=== PATIENT | male | born 1940 | race Caucasian/White ===

== ENCOUNTER → 2016-10-15 | Outpatient (CLI) | payer MEDICARE, OTHER ==
[~2016-10-15] MED LIST: /WARF25TA; BABY81CH; LIPI20TA; MELOPOW; PAXI20TA; PERC5TAB8; PRIL20CA; RISP1TAB; THERGRAN; VALS80CA; ZEBE5TAB; indapamide; xalatan
--- NOTE | 2016-10-15 14:59 | REP ---
Clinical: Chest pain . Comparison: 11/29/2015 . Technique: PA and lateral. Findings: The mediastinum and cardiac silhouette are normal. The lung fuchs demonstrate chronic basilar changes without acute consolidation, effusion, or pneumothorax. The skeletal structures are intact and normal. Impression: 1. No acute cardiopulmonary process. Signed by Alex Tello MD 10/15/2016 02:50 P
== END ==
LOC: M WUC 14:18
PROVIDERS: ATTEND Family Medicine
DX: J15.9 Unspecified bacterial pneumonia (principal)

== ENCOUNTER → 2017-02-06 | Outpatient (REF) | payer MEDICARE, OTHER ==
[2017-02-06 13:07] LABS: MEAN CORPUSCULAR HEMOGLOBIN 33.4 pg (27.0-33.0); MEAN CORPUSCULAR HGB CONC 34.7 g/dl (32.0-36.5); MEAN CORPUSCULAR VOLUME 96.1 fl (80.0-96.0); RED CELL DISTRIBUTION WIDTH 12.5 % (11.5-14.5); WHITE BLOOD COUNT 5.3 K/mm3 (4.0-10.0)
[2017-02-06 13:40] LABS: ALBUMIN 3.6 GM/DL (3.2-5.2); ALBUMIN/GLOBULIN RATIO 1.13 (1.00-1.93); ALKALINE PHOSPHATASE 49 U/L (45-117); ALT/SGPT 19 U/L (12-78); ANION GAP 7 MEQ/L (8-16); AST/SGOT 15 U/L (15-37); BILIRUBIN,TOTAL 0.8 MG/DL (0.2-1.0); BLOOD UREA NITROGEN 13 MG/DL (7-18); CALCIUM LEVEL 9.2 MG/DL (8.8-10.2); CARBON DIOXIDE LEVEL 30 MEQ/L (21-32); CHLORIDE LEVEL 100 MEQ/L (98-107); CHOLESTEROL LEVEL 151 MG/DL (<200); CREATININE FOR GFR 1.16 MG/DL (0.70-1.30); GLOMERULAR FILTRATION RATE > 60.0 (>42); GLUCOSE, FASTING 108 MG/DL (83-110); SODIUM LEVEL 137 MEQ/L (136-145); TOTAL PROTEIN 6.8 GM/DL (6.4-8.2); TRIGLYCERIDES LEVEL 170 MG/DL (<150)
== END ==
LOC: M SFHCPLAZ 08:17
PROVIDERS: ATTEND Family Medicine
DX: I25.10 Atherosclerotic heart disease of native coronary artery without angina pectoris (principal); D51.9 Vitamin B12 deficiency anemia, unspecified; E78.2 Mixed hyperlipidemia

== ENCOUNTER → 2017-03-26 | Outpatient (CLI) | payer MEDICARE, BC, OTHER ==
[~2017-03-26] MED LIST changes: +ASPI1TAB PO; +ATOR1TAB21 PO; +BISO5TAB5 PO; +COUM1TAB17 PO; +COUM2.5T17 PO; +INDA125TA PO; +LOSA50TA20 PO; +MULT1TAB18 PO; +OMEP40CA2 PO; +PAXI20TA29 PO; +RANI1TAB6 PO; +RISP0.5T21 PO; +RISP1TAB42 PO; +TRAM50TA2 PO; +VALS1TAB46 PO; +VITA100066 PO; +ZANTTAB9 PO
[2017-03-26 11:44] LABS: MEAN CORPUSCULAR HEMOGLOBIN 32.7 pg (27.0-33.0); MEAN CORPUSCULAR HGB CONC 34.1 g/dl (32.0-36.5); MEAN CORPUSCULAR VOLUME 95.8 fl (80.0-96.0); WHITE BLOOD COUNT 6.1 K/mm3 (4.0-10.0)
--- NOTE | 2017-03-26 11:47 | REP ---
Chest two views HISTORY: Elevated cholesterol Comparison: 10/15/2016 The lungs are clear. The heart is normal in size. The pulmonary vasculature is normal in appearance. Degenerative change is present in the thoracic spine. IMPRESSION: No acute disease. Signed by Mike Whatley MD 03/26/2017 11:38 A
[2017-03-26 11:48] LABS: INR 1.07
[2017-03-26 12:15] LABS: ALBUMIN 3.8 GM/DL (3.2-5.2); ALBUMIN/GLOBULIN RATIO 1.23 (1.00-1.93); ALKALINE PHOSPHATASE 51 U/L (45-117); ALT/SGPT 19 U/L (12-78); ANION GAP 8 MEQ/L (8-16); AST/SGOT 14 U/L (15-37); BILIRUBIN,TOTAL 0.6 MG/DL (0.2-1.0); BLOOD UREA NITROGEN 13 MG/DL (7-18); CALCIUM LEVEL 9.1 MG/DL (8.8-10.2); CARBON DIOXIDE LEVEL 30 MEQ/L (21-32); CHLORIDE LEVEL 101 MEQ/L (98-107); CREATININE FOR GFR 1.05 MG/DL (0.70-1.30); GLOMERULAR FILTRATION RATE > 60.0 (>42); GLUCOSE, FASTING 88 MG/DL (83-110); SODIUM LEVEL 139 MEQ/L (136-145); TOTAL PROTEIN 6.9 GM/DL (6.4-8.2)
--- NOTE | 2017-03-26 18:28 | ECGEPIP ---
Stationary ECG Study [facility] Test Date: 2017-03-26 Pat Name: ANTIONE KERR Department: Room: - Gender: M Component Lab Tech: [facility] : [id number] Requested By: Jerome Montoya Order Number: [id number] Reading MD: Sonu Gomez Measurements Intervals [place] Rate: 59 P: 15 CO: 172 QRS: -12 QRSD: 116 T: 12 QT: 425 QTc: 422 Interpretive Statements Sinus bradycardia LA conduction disturbance? Left ventricular hypertrophy by Fran criteria Marginal ST/T-wave abnormalities. No prior tracing for comparison. Clinical correlation advised Electronically Signed On 03-26-2017 18:28:08 EDT by Sonu Gomez
== END ==
LOC: M ADMPAT 09:24
PROVIDERS: ATTEND Orthopaedic Surgery
DX: M17.12 Unilateral primary osteoarthritis, left knee (principal); Z79.01 Long term (current) use of anticoagulants

== ENCOUNTER 2017-04-06 08:03 | Inpatient (IN) | payer MEDICARE, BC, OTHER ==
[2017-03-26 11:15] VITALS: BP 130/88
--- NOTE | 2017-04-02 11:47 | HPE ---
DATE OF ADMISSION: 04/06/2017 HISTORY OF PRESENT ILLNESS: This is a pleasant male with continuing symptomatic left knee osteoarthritis. He has consented for a left total knee arthroplasty per Dr. Jan Wynne. Medical optimization per Sarbjit Hayes on 03/31/2017. I did review his note, and he was optimized. ALLERGIES: ALTACE causes cough. Side effects include CELEBREX rectal itch. DARVON nausea and vomiting. LEVITRA dizzy, agitation. PENICILLIN G SODIUM rash. SULFA rash. HIGHER DOSES OF ZEBETA severe lethargy. MEDICATION LIST: Includes: - aspirin 81 mg one tablet orally once a day delayed release - vitamin D 1000 units one tablet one orally twice daily - Xalatan 0.005% solution one drop in both eyes ophthalmic solution once a day - flaxseed oil 1000 mg capsule orally daily - Nitrostat 0.4 mg tablet sublingual one tablet under the tongue as needed chest pain - probiotic capsule one capsule orally once a day as needed - Cozaar 25 mg tablet one tablet orally twice a day - Zovirax 5% cream one application affected ear area externally five times daily - Ventolin HFA 108 (90 base mcg 4/ACT aerosol solution two puffs as needed inhalation every 4 hours - Flonase 50 mcg/dose inhaler one spray in each nostril nasally once a day as needed - bisoprolol fumarate 5 mg tablet one tablet orally once a day - Lipitor 20 mg tablet one tablet orally once a day - ranitidine HCl 150 mg tablet one tablet orally twice a day - Paxil 20 mg one tablet orally daily - Risperdal 0.5 mg one tablet orally once a day - indapamide 1.25 mg tablet one tablet orally every day - vitamin D, B-12 1000 mcg tablet one tablet orally once a day MEDICAL PROBLEM LIST: Includes: Symptomatic left knee osteoarthritis. Atherosclerotic heart disease. Mixed hyperlipidemia. Disorder of carbohydrate metabolism. Gastroesophageal reflux without esophagitis. Major depressive disorder, single episode. Anxiety disorder. Essential hypertension. Hypertensive disease. SURGICAL HISTORY Knee surgery 1966. Right total knee arthroplasty 2008. Colonoscopy for diverticulosis 2004 and 2013. Right wrist 2011. Cataract surgery. Left shoulder surgery. FAMILY HISTORY: Father and mother old age. No history of prostate, kidney, or bladder cancer. He is a former smoker, has not smoked in greater than 10 years. Denies alcohol or illicit drugs. REVIEW OF SYSTEMS: Denies chest pain, shortness breath, dyspnea on exertion, fever, chills, malaise, upper respiratory and urinary tract symptoms. PHYSICAL EXAMINATION: Height 69 inches, weight 207, temperature 97.4, blood pressure (BP) 140/75, pulse 62, respirations 16. He is a pleasant overweight white male in no acute distress. He is alert and times three. Mood and affect are appropriate. He is ambulating with favoring of his right lower extremity. No gross antalgia about the left. Abdomen: Soft, nontender times four. Chest rises symmetrically. Lungs: Clear to auscultation. Neck: Supple. Negative jugular venous distention (JVD) or bruits. Normocephalic. LABORATORIES: Were reviewed. ESR 42, RBC 3.68, hemoglobin 12.0, hematocrit 35.3, AST 4/SGOT 14. IMPRESSION: 1. Symptomatic left knee osteoarthritis. 2. The patient consented for a left total knee arthroplasty per Dr. Jan Wynne. 3. Medical optimization per Sarbjit Hayes. 4. On-call to operating room (OR), 2 grams intravenous (IV) Kefzol in OR. 5. Sequential compression devices (SCDs) and thromboembolic deterrents (TEDs) in OR. MTDD
[~2017-04-06] VITALS: Ht 177.8 cm; Wt 214.0 kg
[2017-04-06] VITALS (8 sets, daily range): BP systolic 126–161; BP diastolic 67–87; O2SAT 98–99
[~2017-04-06 08:03] MED LIST changes: -COUM1TAB17 PO; -COUM2.5T17 PO; -LOSA50TA20 PO; -TRAM50TA2 PO; -VITA100066 PO
[2017-04-06] MEDS ORDERED: LR 1,000 ML IV ONE (08:30)
[2017-04-06] MEDS ORDERED: ACETAMINOPHEN 500 MG TAB PO ONE (09:00)
[2017-04-06] MEDS ORDERED: LR 1,000 ML IV SCH ×2 (09:00→13:30)
[2017-04-06] MEDS ORDERED: VITA100066 PO (09:10)
[2017-04-06] MEDS ORDERED: COUM1TAB17 PO (09:10)
[2017-04-06] MEDS ORDERED: fentaNYL 100 MCG/2 ML INJECTION (J3010) As Ordered ONE ×2 (09:31→10:36)
[2017-04-06] MEDS ORDERED: MIDAZOLAM INJ 2 MG/2 ML VIAL (J2250) As Ordered ONE ×2 (09:31→10:36)
[2017-04-06] MEDS ORDERED: PROPOFOL 200 MG/20 ML VIAL As Ordered ONE ×2 (10:36→12:20)
[2017-04-06] MEDS ORDERED: TRANEXAMIC ACID 100 MG/ML 10ML VIAL As Ordered ONE (10:45)
[2017-04-06] MEDS ORDERED: EPINEPHrine INJ 1 MG/ML 1ML AMP As Ordered ONE (10:45)
[2017-04-06] MEDS ORDERED: CLINDAMYCIN 900 MG/50 ML PREMIX BAG As Ordered ONE (10:45)
[2017-04-06] MEDS ORDERED: MIDAZOLAM INJ 2 MG/2 ML VIAL (J2250) IV ONE (10:45)
[2017-04-06] MEDS ORDERED: fentaNYL 100 MCG/2 ML INJECTION (J3010) IV ONE (10:45)
[2017-04-06] MEDS ORDERED: BUPIVACAINE LIPOSOME/PF 1.3% 20 ML VIAL (13.3MG/ML)(EXPAREL) As Ordered ONE (11:16)
[2017-04-06] MEDS ORDERED: LIDOCAINE 2% INJ 100 MG/5 ML SDV (FOR ANES.) As Ordered ONE (11:57)
[2017-04-06] MEDS ORDERED: METOCLOPRAMIDE INJ 10MG/2ML VIAL (J2765) As Ordered ONE (11:57)
[2017-04-06] MEDS ORDERED: dexameTHASONE 4 MG/ML 1ML VIAL (J1100) As Ordered ONE (11:57)
[2017-04-06] MEDS ORDERED: ONDANSETRON 4MG/2ML VIAL (J2405) As Ordered ONE (11:57)
[2017-04-06] MEDS ORDERED: ePHEDrine SULFATE 25 MG/5 ML(5MG/ML) SYRINGE As Ordered ONE (12:06)
[2017-04-06] MEDS ORDERED: MORPHINE 1MG/ML IN 0.9% NACL 100ML IV BAG As Ordered ONE (13:26)
[2017-04-06] MEDS ORDERED: ONDANSETRON 4MG/2ML VIAL (J2405) IV PRN ×2 (13:30→13:45)
[2017-04-06] MEDS ORDERED: MORPHINE 2 MG/ML 1ML SYRINGE IV PRN (13:30)
[2017-04-06] MEDS ORDERED: fentaNYL 100 MCG/2 ML INJECTION (J3010) IV PRN (13:30)
[2017-04-06] MEDS ORDERED: diphenhydrAMINE INJ 50MG/ML VIAL (J1200) IV PRN (13:45)
[2017-04-06] MEDS ORDERED: MORPHINE 1MG/ML IN 0.9% NACL 100ML IV BAG IV PRN (13:45)
[2017-04-06] MEDS: LR 1,000 ML IV SCH (13:45)
[2017-04-06] MEDS ORDERED: EPIDURAL/PCA KEYS XX PRN (13:45)
[2017-04-06] MEDS ORDERED: FLEET ENEMA PR PRN (13:45)
[2017-04-06] MEDS ORDERED: NALBUPHINE HCL 10 MG/ML AMP (J2300) IV PRN (13:45)
[2017-04-06] MEDS ORDERED: NALOXONE INJ 0.4 MG/1 ML VIAL (J2310) IV PRN (13:45)
[2017-04-06] MEDS ORDERED: dexameTHASONE 10 MG/1 ML VIAL PRES.FREE (J1100) ONE (13:54)
[2017-04-06] MEDS ORDERED: EPINEPHrine INJ 1 MG/ML 1ML AMP ONE (13:54)
[2017-04-06] MEDS ORDERED: ROPIvacaine 0.5% 30 ML INJECTION (J2795) ONE (13:54)
--- NOTE | 2017-04-06 15:28 | RO ---
DATE OF PROCEDURE: 04/06/2017 PREPROCEDURE DIAGNOSIS: Left knee degenerative arthritis. POSTPROCEDURE DIAGNOSIS: Left knee degenerative arthritis. OPERATIVE PROCEDURE: Left total knee arthroplasty using a size 4 cruciate retaining femoral component with a size 4 tibial tray with a 12.5 mm rotating platform polyethylene insert and a 38 mm polyethylene button. All components were cemented. Prosthesis made by [employer], it was a PFC knee. SURGEON: Jerome Wynne MD TURBINATED BONE GRINDER: Mr. Shiva Blanchard ANESTHESIA: Spinal with left femoral nerve block. COMPLICATIONS: None. DESCRIPTION OF PROCEDURE: Antibiotics were given intravenously preoperatively then a successful left femoral nerve block and then a spinal anesthetic was established. A tourniquet was placed on the left upper thigh and not inflated. The left lower extremity was prepped and draped in the usual sterile fashion. The leg was then elevated, then the tourniquet was inflated after the appropriate time out had been confirmed. A longitudinal incision was then made for a medial parapatellar approach to the left knee. Bovie cautery was used to coagulate crossing vessels. The patella was everted and subperiosteal dissection around the proximal medial portion of the tibia was performed and then the knee was flexed. Anterior cruciate ligament (ACL) was debrided. The drill placed down the center of the femoral canal followed by the intramedullary adrienne and a distal femoral cutting jig set at 5 degrees valgus cut for a left knee at 10 mm resection level. The block was pinned into position. Distal femoral cut performed. AP sizing jig measured for a 4. The 3 degrees external rotation block was pinned into position followed by the four-in-one block and anterior-posterior chamfer cuts performed. We then exposed the proximal tibia and used the extramedullary jig to estimate being parallel to the mechanical axis of the tibia. We referenced off the medial tibial condyle set at 4 mm resection level. The block was then pinned into position and a secondary check with extramedullary adrienne confirmed that we appeared to be parallel to the mechanical axis. Laminar household manager was then placed laterally and we performed a completion medial meniscectomy with debridement of posterior medial osteophytes. We then placed the laminar household manager medially and performed a completion lateral meniscectomy with debridement of the posterior lateral osteophytes. Spacer blocks were then trialed and the 12.5 had the best stability. It had good balance in flexion and extension and both varus to valgus stress testing. We then exposed the proximal tibia sized for a #4 tibial tray, which was reamed and broached in position, followed by the 12.5 insert, then the femoral component trial was applied and the knee brought into extension. He had good stability to varus valgus stress test noted once again both in flexion and extension. We then everted the patella, performed a patellar osteotomy sized for 38 button. Lug holes were drilled. Patellofemoral tracking with the trial patellar component was anatomic. At this point, we drilled the lug holes for the femur, removed the trial components. Exparel was then instilled in the posterior capsule and the periosteum around both the femur and the tibia. Then, my business support assistant Mr. Shiva Blanchard began mixing the cement on the back table as I prepared the bony surfaces for cementing with a copious amount of pulsatile lavage irrigant solution. Once all the surfaces had been thoroughly dried, we cemented the tibial tray, removed excess cement, placed the polyethylene then cemented the femoral component, removed all excess cement, and then brought the knee out to extension and cemented the patellar button, held it with a clamp and removed excess cement and the clamp was held until the cement had hardened. While we were waiting, Exparel infiltration was completed through the capsular edges and then a copious amount of pulsatile lavage irrigant solution was instilled followed by Tranexamic acid. We then began closing the apex of the arthrotomy with #1 PDS suture, then closed the medial parapatellar area with #1 PDS sutures. Then, a running double arm Stratafix was used to close the capsule. The tourniquet was then released at this point and then the subdermal tissues were closed with interrupted #2-0 PDS sutures, skin was closed with eddie, covered by Adaptic dry sterile bulky dressing. Mr. Blanchard was critical to the success of the procedure by helping to manipulate the knee, helping with appropriate soft tissue retraction; helped to close the wound, helped to prepare the patient for surgery amongst many other tasks.
[2017-04-06] MEDS ORDERED: ALBUTEROL SULFATE 2.5 MG/0.5 ML INH NEB SOLN NEB PRN (16:30)
[2017-04-06] MEDS ORDERED: WARFARIN SOD 5 MG TAB PO ONE (17:00)
--- NOTE | 2017-04-06 17:15 | CR ---
DATE OF CONSULTATION: 04/06/2017 CONSULTATION REPORT FOR: Jerome Wynne MD HISTORY: The patient is admitted to complete a left total knee arthroplasty. He had previous knee done a few years ago on the right. He has had arthritis for many years, gradually worsening, pain rates 8/10. He has been seen by cardiology. He does have a history of coronary artery disease status post atherectomy in 1995. Most recent stress tests was in 2011, showed normal perfusion and an ejection fraction of 65%, thought to be low risk at that time. The patient recently has not had difficulty with chest pain, palpitations or orthopnea and affirms that he adheres to his medication regimen. PAST MEDICAL HISTORY: Remarkable for BPH, coronary artery disease as mentioned, routine followup with cottage cheese maker Dr. Gomez, gastroesophageal reflux disease, shoulder calcific tendonitis, retinal vein occlusion right eye in December 2008, colonoscopy 2004 and 2013 showing diverticulosis, tremors in his hands, hypercholesterolemia. CURRENT MEDICATIONS: According to the office record: - aspirin 81 mg daily - vitamin D 1000 units twice a day - Xalatan eye drops 0.005% solution one drop both eyes daily - flaxseed oil 1000 mg daily - Nitrostat 0.4 mg sublingual as needed for chest pain - probiotic capsule once daily as needed - Cozaar 25 mg by mouth twice a day - Zovirax 5% cream externally as needed - Ventolin HFA two puffs every 4 hours as needed - Flonase 50 mcg in the nose once daily as needed, he notes he has not been using this agent recently - bisoprolol 5 mg by mouth daily - atorvastatin 20 mg by mouth daily - ranitidine 150 mg by mouth twice a day - paroxetine 20 mg by mouth daily - Risperdal 0.5 mg by mouth twice a day - indapamide 1.25 mg every other day - vitamin B12 1000 mcg daily SOCIAL HISTORY: mold operator. 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 ALLERGIES: Include cough with ALTACE, CELEBREX perianal itching, DARVON nausea, LEVITRA dizzy and agitation, PENICILLIN G rash, SULFONAMIDE rash, lethargy with high-dose ZEBETA. REVIEW OF SYSTEMS: No fevers, chills, aches, pains. No bleeding, no bruising. No diarrhea, constipation, nausea or melena. No dizziness, fainting, or seizure disorder. No chest pain or palpitations. No cough, shortness of breath or wheezing recently. No rash or bruising. No nasal congestion or drainage. No trouble swallowing. No odynophagia. No recent change in vision and no trouble with peeing. PHYSICAL EXAMINATION: He is alert and pleasant. Minimal tremor noted. Somewhat slow to respond to questions and affect somewhat flat. Blood pressure 163/76, pulse 65, respiratory rate 18, nasal cannula 2 liters producing an oxygen saturation of 99%. HEENT: Normocephalic, atraumatic. Pupils equal, round, and reactive to light. Full extraocular movements. No oral lesions noted. No palpable neck mass. No thyroid enlargement or tracheal shift. HEART: Regular rate and rhythm, 2/6 systolic murmur heard at the base. No PMI displacement is noted. Pulses are full throughout. LUNGS: Clear. No wheezing, rales or rhonchi. Equal expansion is noted. ABDOMEN: Soft, flat, nontender, with no guarding or rebound. EXTREMITIES: No clubbing or edema. He has well-healed right total knee incision scar, left is covered in dressings postoperatively. NEUROLOGIC: He has a flat affect. A mild, faint tremor is noted. He moves all extremities spontaneously, although flexion of the left knee was not tested. LABORATORY DATA: Hemoglobin 12.0, sedimentation rate 42 before surgery. Comprehensive metabolic profile normal except for low AST at 14. Urinalysis was unremarkable. IMAGING STUDIES: Included a chest x-ray done on 03/26/2017, which showed no acute disease. ASSESSMENT: Patient status post left total knee, history of right total knee in the past, history of chronic stable coronary artery disease, hypertension, medication regimen shows a history of depression, GERD. PLAN: Will resume his usual preadmission medications with hold parameters for the Cozaar and indapamide. Flonase will not be reordered at this time because he has not been using it recently in any event. Nitroglycerin sublingual will be ordered if need arises. Flaxseed will also not be renewed. In brief, will resume bisoprolol 5 mg daily, atorvastatin 20 daily, aspirin 81 mg daily, put out albuterol nebulizers instead of using a MDI while in the hospital, latanoprost drops will be renewed, and will be started on indapamide 1.25 mg every other day along with losartan 25 by mouth twice a day. At this point the patient looks to be doing well. Anticipate uncomplicated course.
[2017-04-06] MEDS: LATANOPROST 0.005% OPHTH SOLN 2.5 ML OU SCH (21:20)
[2017-04-06] MEDS: risperiDONE 0.5 MG TAB PO SCH (21:20)
[2017-04-06] MEDS: LOSARTAN 25 MG TAB PO SCH (21:20)
[2017-04-06] MEDS: ACETAMINOPHEN TAB 650MG DOSE (2X325MG) PO PRN (22:08)
[2017-04-07] MEDS: ACETAMINOPHEN TAB 650MG DOSE (2X325MG) PO PRN ×6 (02:04→22:42)
[2017-04-07] MEDS: LR 1,000 ML IV SCH (02:15)
[2017-04-07 06:00] VITALS: BP 178/81
[2017-04-07] MEDS ORDERED: traMADol 50 MG TAB PO PRN (07:00)
[2017-04-07] MEDS ORDERED: ONDANSETRON 4 MG TAB (S0181) PO PRN (07:00)
[2017-04-07 07:19] LABS: MEAN CORPUSCULAR HEMOGLOBIN 34.1 pg (27.0-33.0); MEAN CORPUSCULAR HGB CONC 34.9 g/dl (32.0-36.5); MEAN CORPUSCULAR VOLUME 97.7 fl (80.0-96.0); RED CELL DISTRIBUTION WIDTH 12.3 % (11.5-14.5); WHITE BLOOD COUNT 11.5 K/mm3 (4.0-10.0)
[2017-04-07 07:24] LABS: ANION GAP 10 MEQ/L (8-16); BLOOD UREA NITROGEN 17 MG/DL (7-18); CALCIUM LEVEL 8.4 MG/DL (8.8-10.2); CARBON DIOXIDE LEVEL 25 MEQ/L (21-32); CHLORIDE LEVEL 102 MEQ/L (98-107); CREATININE FOR GFR 1.21 MG/DL (0.70-1.30); GLOMERULAR FILTRATION RATE > 60.0 (>42); GLUCOSE, FASTING 201 MG/DL (83-110); POTASSIUM SERUM 4.1 MEQ/L (3.5-5.1); SODIUM LEVEL 137 MEQ/L (136-145)
[2017-04-07 07:28] LABS: INR 1.5
--- NOTE | 2017-04-07 08:00 | IPNPDOC ---
Subjective Date Seen The patient was seen on 04/07/17. Subjective Chief Complaint/HPI The patient is a 76-year-old male admitted with a reason for visit of Left Knee Arthritis. General: Reports: Normal Appetite Constitutional: Denies: Chills, Malaise Skin: Denies: Rash, Itching Pulmonary: Denies: Dyspnea, Cough, Pleuritic Chest Pain Cardiovascular: Denies: Chest Pain, Palpitations, Orthopnea Gastrointestinal: Denies: Nausea, Vomiting, Abdominal Pain Genitourinary: Denies: Dysuria Hematologic: Denies: Bruising, Petecchia Psych: Reports: Mood Normal Objective Physical Examination General Exam: Positive: Alert, Cooperative Eye Exam: Positive: PERRLA, Conjunctiva & lids normal, EOMI, Negative: Sclera icteric, Ptosis Chest Exam: Positive: Clear to auscultation, Normal air movement, Negative: Rales, Rhonchi, Wheezing Heart Exam: Positive: Rate Normal, Regular Rhythm Abdomen Exam: Positive: Normal bowel sounds, Soft, Negative: Tenderness, Hepatospenomegaly Extremity Exam: Negative: Clubbing, Cyanosis, Edema Skin Exam: Positive: Nl turgor and temperature, Negative: Rash Psych Exam: Positive: Mental status NL, Oriented x 3, Negative: Anxiety Assessment /Plan Problems (1) Status post total left knee replacement Status: Acute Response to Treatment: Improving Problem Text: management per ortho. receiving usual DVT prophylaxis. was ambulating yesterday afternoon. coping well with any discomfort. (2) Hypertension Status: Chronic Response to Treatment: Stable Problem Specific Plan: Monitor Clinically Problem Text: Has not received am meds. anticipate improvement in pressure after meds given. will continue to follow. (3) Depression Status: Chronic Response to Treatment: Stable Problem Specific Plan: Monitor Clinically Plan/VTE VTE Prophylaxis Ordered?: Yes Plan Anticipated Discharge: Home, Home With Services VS, I&O, 24H, [place] Vital Signs/I&O Vital Signs Date Time Temp Pulse Resp B/P (MAP) Pulse Ox O2 Delivery O2 Flow Rate FiO2 04/07/17 06:00 98.7 88 20 178/81 (113) 97 Nasal Cannula 2.0 I&O- Last 24 Hours up to 6 AM 04/07/17 05:59 Intake Total 1165 ml Output Total 2700 ml Balance -1535 ml Laboratory Data 24H LABS Laboratory Tests 2 04/07/17 06:39: Prothrombin Time 18.5H, Prothromb Time International Ratio 1.50, Anion Gap 10, Glomerular Filtration Rate > 60.0, Blood Urea Nitrogen 17, Creatinine 1.21, Sodium Level 137, Potassium Level 4.1, Chloride Level 102, Carbon Dioxide Level 25, Calcium Level 8.4L CBC/BMP Laboratory Tests 04/07/17 06:39 Red Blood Count 3.22 L, Mean Corpuscular Volume 97.7 H, Mean Corpuscular Hemoglobin 34.1 H, Mean Corpuscular Hemoglobin Concent 34.9, Red Cell Distribution Width 12.3, Calcium Level 8.4 L Larry Payton MD Apr 07, 2017 07:59
[2017-04-07] MEDS ORDERED: INDAPAMIDE 1.25MG TABLET PO SCH (09:00)
[2017-04-07] MEDS: MOM 30ML SUSPENSION UDC PO SCH (09:00)
[2017-04-07] MEDS: MIRALAX *UNIT DOSE* 17GM PACKET PO SCH (09:00)
[2017-04-07] MEDS: ATORVASTATIN 20 MG TAB PO SCH (10:05)
[2017-04-07] MEDS: SENOKOT S TAB PO SCH ×2 (10:05→21:00)
[2017-04-07] MEDS: risperiDONE 0.5 MG TAB PO SCH ×2 (10:05→21:00)
[2017-04-07] MEDS: PARoxetine 20 MG TAB PO SCH (10:05)
[2017-04-07] MEDS: ASPIRIN 81 MG ENTERIC TAB PO SCH (10:05)
[2017-04-07] MEDS: BISOPROLOL FUMARATE 5 MG TAB PO SCH (10:06)
[2017-04-07] MEDS: LOSARTAN 25 MG TAB PO SCH ×2 (10:06→21:01)
--- NOTE | 2017-04-07 12:21 | REP ---
LEFT KNEE: AP and lateral views of the left knee are performed. There is a total knee prosthesis in good position. The structures are well aligned. Metallic skin eddie are seen anteriorly. Signed by Delonte Ackerman MD 04/07/2017 05:09 P
[2017-04-07] MEDS ORDERED: WARFARIN SOD 5 MG TAB PO ONE (17:00)
[2017-04-07] MEDS: LATANOPROST 0.005% OPHTH SOLN 2.5 ML OU SCH (21:01)
[2017-04-07 22:00] VITALS: BP 184/72
[2017-04-07 23:44] VITALS: O2SAT 99
[2017-04-08] MEDS: ACETAMINOPHEN TAB 650MG DOSE (2X325MG) PO PRN ×3 (02:28→14:14)
[2017-04-08 06:00] VITALS: BP 188/80
[2017-04-08 07:13] LABS: MEAN CORPUSCULAR HEMOGLOBIN 33.3 pg (27.0-33.0); MEAN CORPUSCULAR VOLUME 95.1 fl (80.0-96.0); RED CELL DISTRIBUTION WIDTH 11.9 % (11.5-14.5); WHITE BLOOD COUNT 10.2 K/mm3 (4.0-10.0)
[2017-04-08 07:19] LABS: ANION GAP 9 MEQ/L (8-16); BLOOD UREA NITROGEN 16 MG/DL (7-18); CALCIUM LEVEL 8.4 MG/DL (8.8-10.2); CARBON DIOXIDE LEVEL 27 MEQ/L (21-32); CHLORIDE LEVEL 99 MEQ/L (98-107); CREATININE FOR GFR 0.97 MG/DL (0.70-1.30); GLOMERULAR FILTRATION RATE > 60.0 (>42); GLUCOSE, FASTING 153 MG/DL (83-110); POTASSIUM SERUM 3.5 MEQ/L (3.5-5.1); SODIUM LEVEL 135 MEQ/L (136-145)
[2017-04-08 07:24] LABS: INR 2.78
[2017-04-08] MEDS ORDERED: TRAM50TA2 PO (08:21)
[2017-04-08] MEDS ORDERED: COUM2.5T17 PO (08:21)
[2017-04-08] MEDS: ASPIRIN 81 MG ENTERIC TAB PO SCH (10:04)
[2017-04-08] MEDS: LOSARTAN 25 MG TAB PO SCH (10:05)
[2017-04-08] MEDS: BISOPROLOL FUMARATE 5 MG TAB PO SCH (10:05)
[2017-04-08] MEDS: ATORVASTATIN 20 MG TAB PO SCH (10:05)
[2017-04-08] MEDS: SENOKOT S TAB PO SCH (10:05)
[2017-04-08] MEDS: risperiDONE 0.5 MG TAB PO SCH (10:05)
[2017-04-08] MEDS: PARoxetine 20 MG TAB PO SCH (10:05)
[2017-04-08] MEDS: MIRALAX *UNIT DOSE* 17GM PACKET PO SCH (10:06)
[2017-04-08] MEDS: MOM 30ML SUSPENSION UDC PO SCH (10:06)
[2017-04-08] MEDS ORDERED: LOSARTAN 25 MG TAB PO ONE (10:30)
[2017-04-08] MEDS ORDERED: LOSA50TA20 PO (11:19)
[2017-04-08 11:56] VITALS: BP 188/80
[2017-04-08] MEDS ORDERED: LOSARTAN 50 MG TAB PO SCH (21:00)
--- NOTE | 2017-04-12 19:43 | DSES ---
DATE OF ADMISSION: 04/06/2017 DATE OF DISCHARGE: 04/08/2017 DISCHARGE DIAGNOSIS: Left knee arthritis status post left total knee arthroplasty. HISTORY: Jonnie is a pleasant 76-year-old male with persistent left knee pain. He has elected for surgery for his continued symptoms. PROCEDURE PERFORMED: Left total knee arthroplasty. HOSPITAL COURSE: The patient was admitted on the day of surgery and underwent left total knee arthroplasty without complications. The patient was up with physical therapy per the protocol and their pain was controlled. On the day of discharge the patient was doing well, they will move their knee to prevent stiffness, they will use ARIANNA stockings and adjusted dose Coumadin for DVT prophylaxis. Also, the patient will followup in the office in 2 weeks for staple removal. They were instructed to resume their normal diet and will use oral medications for pain control.
== END 2017-04-08 14:40 | disposition home health service (06) | DRG 470 ==
LOC: M OR 08:03 → M MS5PR 14:15
PROVIDERS: ADMIT Orthopaedic Surgery; ATTEND Orthopaedic Surgery
PROC: 0SRD0J9 Replacement of Left Knee Joint with Synthetic Substitute, Cemented, Open Approach (ICD-10-PCS; principal; 2017-04-06 11:10)
DX: M17.12 Unilateral primary osteoarthritis, left knee (principal); F32.9 Major depressive disorder, single episode, unspecified; Z88.0 Allergy status to penicillin; Z88.2 Allergy status to sulfonamides; Z88.5 Allergy status to narcotic agent; Z88.8 Allergy status to other drugs, medicaments and biological substances; Z79.899 Other long term (current) drug therapy; Z79.82 Long term (current) use of aspirin; F41.9 Anxiety disorder, unspecified; K21.9 Gastro-esophageal reflux disease without esophagitis; I25.10 Atherosclerotic heart disease of native coronary artery without angina pectoris; E78.2 Mixed hyperlipidemia; Z96.651 Presence of right artificial knee joint; I10 Essential (primary) hypertension

== ENCOUNTER → 2017-04-20 | Outpatient (REF) | payer MEDICARE, BC, OTHER ==
[~2017-04-20] MED LIST changes: +COUM1TAB17 PO; +COUM2.5T17 PO; +LOSA50TA20 PO; +TRAM50TA2 PO; +VITA100066 PO
[2017-04-20 15:46] LABS: INR 4.3
== END ==
LOC: M LAB REF 13:30
PROVIDERS: ATTEND Orthopaedic Surgery
DX: Z51.81 Encounter for therapeutic drug level monitoring (principal); Z79.01 Long term (current) use of anticoagulants

== ENCOUNTER → 2017-04-21 | Outpatient (CLI) | payer MEDICARE, BC, OTHER ==
[2017-04-21 11:39] LABS: INR 3.13
== END ==
LOC: M SMT 09:49
PROVIDERS: ATTEND Physician Assistant
DX: Z51.81 Encounter for therapeutic drug level monitoring (principal); Z79.01 Long term (current) use of anticoagulants; Z96.652 Presence of left artificial knee joint

== ENCOUNTER → 2017-04-28 | Outpatient (CLI) | payer MEDICARE, BC, OTHER ==
[2017-04-28 11:10] LABS: INR 1.25
== END ==
LOC: M SMT 10:05
PROVIDERS: ATTEND Physician Assistant
DX: Z51.81 Encounter for therapeutic drug level monitoring (principal); Z79.01 Long term (current) use of anticoagulants; Z96.652 Presence of left artificial knee joint

== ENCOUNTER → 2017-04-30 | Outpatient (CLI) | payer MEDICARE, BC, OTHER ==
[2017-04-30 11:36] LABS: INR 1.56
== END ==
LOC: M SMT 10:14
PROVIDERS: ATTEND Physician Assistant
DX: Z96.652 Presence of left artificial knee joint (principal); Z79.01 Long term (current) use of anticoagulants

== ENCOUNTER → 2017-05-04 | Outpatient (CLI) | payer MEDICARE, BC, OTHER ==
[2017-05-04 13:37] LABS: INR 2.07
== END ==
LOC: M SMT 09:56
PROVIDERS: ATTEND Physician Assistant
DX: Z51.81 Encounter for therapeutic drug level monitoring (principal); Z79.01 Long term (current) use of anticoagulants; Z96.652 Presence of left artificial knee joint

== ENCOUNTER → 2018-01-29 | Outpatient (REF) | payer MEDICARE, OTHER ==
[2018-01-29 18:06] LABS: FREE T4 0.92 NG/DL (0.76-1.46); THYROID STIMULATING HORMONE 0.272 uIU/ML (0.358-3.740)
[2018-01-29 18:07] LABS: VITAMIN B12 LEVEL 801 PG/ML (247-911)
== END ==
LOC: M SFHCPLAZ 15:24
DX: R41.3 Other amnesia (principal)
CPT/HCPCS: 84443

== ENCOUNTER → 2018-02-04 | Outpatient (REF) | payer MEDICARE, OTHER ==
[2018-02-04 16:39] LABS: ANION GAP 9 MEQ/L (8-16); BLOOD UREA NITROGEN 14 MG/DL (7-18); CALCIUM LEVEL 8.7 MG/DL (8.8-10.2); CARBON DIOXIDE LEVEL 29 MEQ/L (21-32); CHLORIDE LEVEL 102 MEQ/L (98-107); CREATININE FOR GFR 1.14 MG/DL (0.70-1.30); GLOMERULAR FILTRATION RATE > 60.0 (>42); GLUCOSE, FASTING 126 MG/DL (70-100); POTASSIUM SERUM 4.2 MEQ/L (3.5-5.1); SODIUM LEVEL 140 MEQ/L (136-145)
== END ==
LOC: M SFHCPLAZ 13:57
DX: I25.10 Atherosclerotic heart disease of native coronary artery without angina pectoris (principal); I11.9 Hypertensive heart disease without heart failure; E74.9 Disorder of carbohydrate metabolism, unspecified; E78.2 Mixed hyperlipidemia
CPT/HCPCS: 80048

== ENCOUNTER → 2018-02-11 | Outpatient (CLI) | payer MEDICARE, BC, OTHER ==
[~2018-02-11] MED LIST changes: -/WARF25TA; -ASPI1TAB PO; -ATOR1TAB21 PO; -BABY81CH; -BISO5TAB5 PO; -COUM1TAB17 PO; -COUM2.5T17 PO; -INDA125TA PO; -LIPI20TA; -LOSA50TA20 PO; -MELOPOW; -MULT1TAB18 PO; -OMEP40CA2 PO; -PAXI20TA; -PAXI20TA29 PO; -PERC5TAB8; -PRIL20CA; +PROHANCE 279.3MG/ML 15ML VIAL (A9576) As Ordered; +PROHANCE 279.3MG/ML 5ML VIAL (A9576) As Ordered; -RANI1TAB6 PO; -RISP0.5T21 PO; -RISP1TAB; -RISP1TAB42 PO; -THERGRAN; -TRAM50TA2 PO; -VALS1TAB46 PO; -VALS80CA; -VITA100066 PO; -ZANTTAB9 PO; -ZEBE5TAB; -indapamide; -xalatan
== END ==
LOC: M RAD 11:01
DX: R41.3 Other amnesia (principal); H93.13 Tinnitus, bilateral; H91.93 Unspecified hearing loss, bilateral; I67.81 Acute cerebrovascular insufficiency; G31.9 Degenerative disease of nervous system, unspecified
CPT/HCPCS: A9576

== ENCOUNTER → 2018-07-30 | Outpatient (REF) | payer MEDICARE, OTHER ==
[~2018-07-30] MED LIST changes: +/WARF25TA; +ASPI1TAB PO; +ATOR1TAB21 PO; +BABY81CH; +BISO5TAB5 PO; +COUM1TAB17 PO; +COUM2.5T17 PO; +INDA125TA PO; +LIPI20TA; +LOSA50TA73 PO; +MELOPOW; +MULT1TAB18 PO; +OMEP40CA2 PO; +PAXI20TA; +PAXI20TA29 PO; +PERC5TAB8; +PRIL20CA; -PROHANCE 279.3MG/ML 15ML VIAL (A9576) As Ordered; -PROHANCE 279.3MG/ML 5ML VIAL (A9576) As Ordered; +RANI1TAB6 PO; +RISP0.5T21 PO; +RISP1TAB; +RISP1TAB42 PO; +THERGRAN; +TRAM50TA2 PO; +VALS1TAB46 PO; +VALS80CA; +VITA100066 PO; +ZANTTAB9 PO; +ZEBE5TAB; +indapamide; +xalatan
[2018-07-30 13:15] LABS: MEAN CORPUSCULAR HEMOGLOBIN 32.8 pg (27.0-33.0); MEAN CORPUSCULAR HGB CONC 34.4 g/dl (32.0-36.5); MEAN CORPUSCULAR VOLUME 95.5 fl (80.0-96.0); PLATELET COUNT, AUTOMATED 241 10^3/uL (150-450); RED BLOOD COUNT 3.35 10^6/uL (4.30-6.10); WHITE BLOOD COUNT 7.5 10^3/uL (4.0-10.0)
[2018-07-30 13:39] LABS: ALBUMIN 3.2 GM/DL (3.2-5.2); BILIRUBIN,TOTAL 0.7 MG/DL (0.2-1.0); CALCIUM LEVEL 8.9 MG/DL (8.8-10.2); CHOLESTEROL RISK RATIO 4.058 (<5); CREATININE FOR GFR 1.38 MG/DL (0.70-1.30); GLOMERULAR FILTRATION RATE 52.9 (>42); POTASSIUM SERUM 3.8 MEQ/L (3.5-5.1); TOTAL PROTEIN 6.7 GM/DL (6.4-8.2)
[2018-07-30 16:46] LABS: FOLATE 15.4 NG/ML
== END ==
LOC: M SFHCPLAZ 11:35
PROVIDERS: ATTEND Nurse Practitioner Family
DX: R53.83 Other fatigue (principal); R05 Cough; I11.9 Hypertensive heart disease without heart failure; E78.2 Mixed hyperlipidemia
CPT/HCPCS: 36415; 80053; 80061; 82607; 82746; 85027; 85046; G0463

== ENCOUNTER → 2018-08-11 | Outpatient (CLI) | payer MEDICARE, BC, OTHER ==
[2018-08-11 14:22] LABS: BLOOD UREA NITROGEN 18 MG/DL (7-18); CALCIUM LEVEL 8.5 MG/DL (8.8-10.2); CARBON DIOXIDE LEVEL 27 MEQ/L (21-32); CHLORIDE LEVEL 99 MEQ/L (98-107); CREATININE FOR GFR 1.19 MG/DL (0.70-1.30); GLOMERULAR FILTRATION RATE > 60.0 (>42); GLUCOSE, FASTING 137 MG/DL (70-100); POTASSIUM SERUM 4.1 MEQ/L (3.5-5.1); SODIUM LEVEL 135 MEQ/L (136-145)
== END ==
LOC: M SMT 11:21
PROVIDERS: ATTEND Nurse Practitioner Family
DX: I11.9 Hypertensive heart disease without heart failure (principal)

== ENCOUNTER → 2018-09-30 | Outpatient (REF) | payer MEDICARE, OTHER ==
[~2018-09-30] MED LIST changes: -LOSA50TA73 PO; +LOSA50TA88 PO
== END ==
LOC: M SFHCPLAZ 17:03
PROVIDERS: ATTEND Nurse Practitioner Family
DX: R31.9 Hematuria, unspecified (principal)
CPT/HCPCS: 81002; 87086; G0463

== ENCOUNTER → 2018-10-08 | Outpatient (CLI) | payer MEDICARE, BC, OTHER ==
--- NOTE | 2018-10-08 14:39 | REP ---
RENAL AND BLADDER ULTRASOUND: Real-time sonographic evaluation of the kidneys was performed. Kidneys are normal in size and echotexture, right kidney measuring 11.3 x 6.1 x 6.2 cm and left kidney 14.8 x 6.0 x 7.3 cm inclusive of a cyst in the upper pole. There are bilateral renal cysts identified. Once again in the upper pole of the right kidney there is a cyst with a thin rim of calcification in the wall of the cyst. This is essentially unchanged when compared to the prior study of 08/31/2015, measuring 4.2 x 4.6 x 4.1 cm. There is a cyst in the right lower pole measures 1.9 x 1.4 x 1.6 cm. There are multiple cysts in the left kidney, largest in the upper pole measures 4.1 x 3.5 x 4.1 cm and lower pole 4.7 x 3.7 x 4.4 cm. Urinary bladder is minimally distended and not optimally evaluated. IMPRESSION: Bilateral renal cysts as above. No hydronephrosis. There is a cyst in the upper pole of the right kidney has a thin rim of calcification in its wall and appears essentially unchanged compared to the prior CT of 08/31/2015. Electronically Signed by Delonte Ackerman MD 10/08/2018 04:13 P
== END ==
LOC: M RAD 11:36
PROVIDERS: ATTEND Nurse Practitioner Family
DX: N28.1 Cyst of kidney, acquired (principal); Z87.442 Personal history of urinary calculi

== ENCOUNTER → 2018-10-20 | Outpatient (CLI) | payer MEDICARE, BC, OTHER ==
--- NOTE | 2018-10-20 18:37 | REP ---
BILATERAL KNEES: Four views of bilateral knees performed. There is no acute fracture or dislocation. There are bilateral knee prostheses in place, in good position, with no abnormal lucency adjacent to any of the prosthetic components. IMPRESSION: Bilateral total knee prosthesis with no acute abnormalities. Electronically Signed by Delonte Ackerman MD 10/20/2018 07:47 P
--- NOTE | 2018-10-20 18:38 | REP ---
BILATERAL FEMUR: AP and lateral views of the bilateral femurs are performed. There is no acute fracture or dislocation bilaterally. There are bilateral total knee prostheses. There are mild scattered vascular calcifications in the medial soft tissues. There is mild joint space narrowing, subchondral sclerosis and spurring at both hip joints. There is mild tendinous calcification along the greater and lesser trochanters bilaterally. There is bilateral superior patellar spurring. IMPRESSION: Mild degenerative changes of the hips. Superior patellar spurring bilaterally. Bilateral knee prostheses. Electronically Signed by Delonte Ackerman MD 10/20/2018 07:48 P
== END ==
LOC: M WUC 16:36
PROVIDERS: ATTEND Physician Assistant
DX: M25.761 Osteophyte, right knee (principal); M25.762 Osteophyte, left knee; M84.80 Other disorders of continuity of bone, unspecified site; Z96.653 Presence of artificial knee joint, bilateral; M79.604 Pain in right leg

== ENCOUNTER → 2019-01-14 | Outpatient (CLI) | payer MEDICARE, BC, OTHER ==
[~2019-01-14] MED LIST changes: -/WARF25TA; -ASPI1TAB PO; +ASPI81TA26 PO; +COUM1TAB18; -VALS1TAB46 PO; +VALS1TAB66 PO
--- NOTE | 2019-01-14 09:45 | REP ---
RIGHT UPPER QUADRANT ULTRASOUND: Real-time sonographic evaluation of the right upper quadrant performed. No gallstones are seen in the gallbladder. There is a 3 mm polyp along the inner wall in the region of the neck of the gallbladder. There are tiny echogenic foci in the wall of the gallbladder compatible with adenomyomatosis. There is no intrahepatic or extrahepatic biliary dilatation, common bile duct measuring 5 mm. The liver demonstrates no mass. Pancreas is not seen due to overlying bowel gas. Right kidney is normal in size with a length of 11.1 cm. No hydronephrosis is seen. There is a cyst in the upper pole of the right kidney 5.1 x 4.3 x 3.6 cm with a calcific rim. Simple cyst in the right lower pole measures 2.3 cm in diameter. IMPRESSION: No gallstones. 3 mm polyp within the gallbladder. There are findings compatible with adenomyomatosis of the gallbladder. No biliary dilatation. Cyst upper pole right kidney with a calcific rim with a maximum diameter of 5.1 cm. This was seen on the prior CT of 08/31/2015 and appears to have slightly increased in size. Simple cyst lower pole right kidney 2.3 cm. Electronically Signed by Delonte Ackerman MD 01/18/2019 09:54 A
== END ==
LOC: M RAD 07:10
PROVIDERS: ATTEND Nurse Practitioner Family
DX: K82.4 Cholesterolosis of gallbladder (principal); N28.1 Cyst of kidney, acquired

== ENCOUNTER → 2019-03-01 | Outpatient (CLI) | payer MEDICARE, BC, OTHER ==
[2019-03-01 18:50] LABS: ALBUMIN 3.4 GM/DL (3.2-5.2); BLOOD UREA NITROGEN 12 MG/DL (7-18); CALCIUM LEVEL 8.4 MG/DL (8.8-10.2); CARBON DIOXIDE LEVEL 28 MEQ/L (21-32); CHLORIDE LEVEL 103 MEQ/L (98-107); CREATININE FOR GFR 1.16 MG/DL (0.70-1.30); GLOMERULAR FILTRATION RATE > 60.0 (>42); GLUCOSE, FASTING 106 MG/DL (70-100); PHOSPHORUS LEVEL 3.4 MG/DL (2.5-4.9); SODIUM LEVEL 137 MEQ/L (136-145)
== END ==
LOC: M SMT 13:12
PROVIDERS: ATTEND Internal Medicine Cardiovascular Disease
DX: I11.9 Hypertensive heart disease without heart failure (principal)

== ENCOUNTER → 2019-06-20 | Outpatient (CLI) | payer MEDICARE, BC, OTHER ==
[~2019-06-20] MED LIST changes: -BISO5TAB5 PO; +BISO5TAB9 PO; -OMEP40CA2 PO; +OMEP40CA97 PO; +RANI-356 PO; -RANI1TAB6 PO
[2019-06-20 18:25] LABS: ALBUMIN 3.5 GM/DL (3.2-5.2); BILIRUBIN,TOTAL 0.7 MG/DL (0.2-1.0); CALCIUM LEVEL 9.1 MG/DL (8.8-10.2); CREATININE FOR GFR 1.35 MG/DL (0.70-1.30); GLOMERULAR FILTRATION RATE 54.1 (>35); POTASSIUM SERUM 3.9 MEQ/L (3.5-5.1); TOTAL PROTEIN 6.9 GM/DL (6.4-8.2)
== END ==
LOC: M SMT 13:29
PROVIDERS: ATTEND Internal Medicine Cardiovascular Disease
DX: I25.10 Atherosclerotic heart disease of native coronary artery without angina pectoris (principal); I11.9 Hypertensive heart disease without heart failure

== ENCOUNTER → 2019-07-14 | Outpatient (REF) | payer MEDICARE, OTHER ==
[2019-07-14 17:16] LABS: HEMATOCRIT 35.7 % (42.0-52.0); HEMOGLOBIN 11.9 g/dl (13.5-17.5); MEAN CORPUSCULAR HEMOGLOBIN 32.1 pg (27.0-33.0); MEAN CORPUSCULAR HGB CONC 33.3 g/dl (32.0-36.5); MEAN CORPUSCULAR VOLUME 96.2 fl (80.0-96.0); PLATELET COUNT, AUTOMATED 236 10^3/uL (150-450); RED BLOOD COUNT 3.71 10^6/uL (4.30-6.10); WHITE BLOOD COUNT 5.8 10^3/uL (4.0-10.0)
[2019-07-14 17:46] LABS: ALBUMIN 3.6 GM/DL (3.2-5.2); BILIRUBIN,TOTAL 0.8 MG/DL (0.2-1.0); CALCIUM LEVEL 9.2 MG/DL (8.8-10.2); CHOLESTEROL RISK RATIO 4.38 (<5); CREATININE FOR GFR 1.74 MG/DL (0.70-1.30); FREE T4 0.99 NG/DL (0.76-1.46); GLOMERULAR FILTRATION RATE 40.4 (>35); POTASSIUM SERUM 4.8 MEQ/L (3.5-5.1); PROSTATIC SPECIFIC AG MONITOR 0.78 NG/ML (< 4.00); THYROID STIMULATING HORMONE 0.486 uIU/ML (0.358-3.740); TOTAL PROTEIN 7.1 GM/DL (6.4-8.2)
[2019-07-14 17:48] LABS: FOLATE 12.5 NG/ML
== END ==
LOC: M SFHCADAM 14:23
PROVIDERS: ATTEND Family Medicine
DX: N28.1 Cyst of kidney, acquired (principal); I25.10 Atherosclerotic heart disease of native coronary artery without angina pectoris; I11.9 Hypertensive heart disease without heart failure; E78.2 Mixed hyperlipidemia; R97.20 Elevated prostate specific antigen [PSA]; F01.50 Vascular dementia, unspecified severity, without behavioral disturbance, psychotic disturbance, mood disturbance, and anxiety

== ENCOUNTER → 2019-08-01 | Outpatient (CLI) | payer MEDICARE, OTHER ==
[~2019-08-01] MED LIST changes: -RANI-356 PO; +RANI-397 PO
[2019-08-01 14:23] LABS: ALBUMIN 3.6 GM/DL (3.2-5.2); CALCIUM LEVEL 8.7 MG/DL (8.8-10.2); CREATININE FOR GFR 1.55 MG/DL (0.70-1.30); GLOMERULAR FILTRATION RATE 46.2 (>35); PHOSPHORUS LEVEL 3.1 MG/DL (2.5-4.9); POTASSIUM SERUM 4.7 MEQ/L (3.5-5.1)
== END ==
LOC: M PLALAB 11:57
PROVIDERS: ATTEND Internal Medicine Cardiovascular Disease
DX: I11.9 Hypertensive heart disease without heart failure (principal)

== ENCOUNTER → 2019-08-11 | Outpatient (CLI) | payer MEDICARE, BC, OTHER ==
--- NOTE | 2019-08-11 14:15 | REP ---
RENAL ULTRASOUND: Real-time sonographic evaluation of the kidneys performed. Right kidney measures 11.5 x 6.8 x 5.4 cm and left kidney 14.0 x 6.8 x 7.2 cm. There is no hydronephrosis bilaterally. There are multiple bilateral renal cysts. Once again the upper pole of the right kidney, there is a cystic structure with a calcified wall, measuring 4.0 x 3.7 x 3.9 cm. This is unchanged compared to prior ultrasound of 09/01/2007. A simple cyst is seen in the lower pole of the right kidney 1.2 x 1.4 x 2.0 cm. In the upper pole of the left kidney several cysts are seen. There is a cyst with internal echoes laterally in the upper pole, measuring 4.1 x 3.5 x 4.3 cm. This was not suspicious on the prior MRI 09/05/2015. It has increased in size by about 1 cm. Simple cyst in the mid left kidney measures 2.7 x 2.2 x 2.6 cm. A cyst with low level echoes in the lower pole of the left kidney measures 4.9 x 4.8 x 5.4 cm. Again, this was not suspicious on the MRI of 09/05/2015 and has increased in size by about 1 cm. IMPRESSION: Multiple bilateral renal cysts as above. There is a cyst in the upper pole of the left kidney as well as in the lower pole of the left kidney, both of which contain low level echoes and apparent debris. These were not suspicious on the prior MRI of 09/05/2015 and both have increased by approximately 1 cm in diameter since that prior exam. These are probably benign. There may be more completely evaluated with dedicated CT or MRI of the kidneys, with and without contrast. Electronically Signed by Delonte Ackerman MD 08/11/2019 05:14 P
== END ==
LOC: M RAD 13:08
PROVIDERS: ATTEND Family Medicine
DX: N28.1 Cyst of kidney, acquired (principal); K76.89 Other specified diseases of liver

== ENCOUNTER → 2019-09-23 | Outpatient (REF) | payer MEDICARE, OTHER ==
[~2019-09-23] MED LIST changes: +BISO5TAB14 PO; -BISO5TAB9 PO
[2019-09-23 19:38] LABS: PERCENT SATURATION 28.6 % (19.7-50.0)
== END ==
LOC: M LAB REF 18:12
PROVIDERS: ATTEND Internal Medicine Nephrology
DX: D50.9 Iron deficiency anemia, unspecified (principal)

== ENCOUNTER → 2020-06-07 | Outpatient (REF) | payer MEDICARE, OTHER ==
[~2020-06-07] MED LIST changes: +LATA0.0015; +NITR0.4S14 SL; +OMEP-218; +RANI15TA PO; +SPIR-10; +VITA-113 SL
[2020-06-07 16:54] LABS: HEMATOCRIT 33.3 % (42.0-52.0); HEMOGLOBIN 10.7 g/dl (13.5-17.5); MEAN CORPUSCULAR HEMOGLOBIN 31.2 pg (27.0-33.0); MEAN CORPUSCULAR HGB CONC 32.1 g/dl (32.0-36.5); MEAN CORPUSCULAR VOLUME 97.1 fl (80.0-96.0); PLATELET COUNT, AUTOMATED 240 10^3/uL (150-450); RED BLOOD COUNT 3.43 10^6/uL (4.30-6.10); WHITE BLOOD COUNT 6.1 10^3/uL (4.0-10.0)
[2020-06-07 17:20] LABS: ALBUMIN 3.6 GM/DL (3.2-5.2); ALT/SGPT 14 U/L (12-78); BILIRUBIN,TOTAL 0.5 MG/DL (0.2-1.0); BLOOD UREA NITROGEN 14 MG/DL (7-18); CALCIUM LEVEL 9.2 MG/DL (8.8-10.2); CARBON DIOXIDE LEVEL 31 MEQ/L (21-32); CHLORIDE LEVEL 103 MEQ/L (98-107); CHOLESTEROL LEVEL 119 MG/DL (<200); CHOLESTEROL RISK RATIO 2.704 (<5); CREATININE FOR GFR 1.11 MG/DL (0.70-1.30); FREE T4 1.03 NG/DL (0.76-1.46); GLOMERULAR FILTRATION RATE > 60.0 (>35); GLUCOSE, FASTING 80 MG/DL (70-100); HDL CHOLESTEROL 44 MG/DL (>40); LDL CHOLESTEROL 46 MG/DL (<100); NON-HDL-C 75 MG/DL; POTASSIUM SERUM 4.8 MEQ/L (3.5-5.1); PROSTATIC SPECIFIC AG MONITOR 0.62 NG/ML (< 4.00); SODIUM LEVEL 136 MEQ/L (136-145); THYROID STIMULATING HORMONE 0.254 uIU/ML (0.358-3.740); TOTAL PROTEIN 6.8 GM/DL (6.4-8.2); TRIGLYCERIDES LEVEL 145 MG/DL (<150)
== END ==
LOC: M SFHCADAM 15:25
PROVIDERS: ATTEND Family Medicine
DX: I25.10 Atherosclerotic heart disease of native coronary artery without angina pectoris (principal); I11.9 Hypertensive heart disease without heart failure; E78.2 Mixed hyperlipidemia; R97.20 Elevated prostate specific antigen [PSA]; R63.4 Abnormal weight loss
CPT/HCPCS: 80053; 80061; 84153; 84439; 84443; 85027; G0463

== ENCOUNTER → 2020-06-23 | Outpatient (CLI) | payer MEDICARE, OTHER | LOC: M LABSMTC 11:20 | PROVIDERS: ATTEND Anesthesiology | DX: Z01.818 Encounter for other preprocedural examination (principal); Z20.828 Contact with and (suspected) exposure to other viral communicable diseases | CPT/HCPCS: C9803; U0003 ==

== ENCOUNTER → 2020-06-28 | Day surgery (SDC) | payer MEDICARE, BC, OTHER ==
[~2020-06-28] VITALS: Ht 177.8 cm; Wt 84.4 kg
[~2020-06-28] MED LIST changes: +LIDOCAINE 2% 100MG/5ML SDV (FOR ANES.) As Ordered ONE; +NS 1,000 ML IV ONE; +fentaNYL 100 MCG/2 ML INJECTION (J3010) As Ordered ONE; +propofoL 200 MG/20 ML VIAL As Ordered ONE
--- NOTE | 2020-06-28 12:54 | ROOR ---
Patient Name: Jonnie Gandhi Procedure Date: 06/28/2020 12:43 PM Date of : 1940 Age: 80 Room: [facility] Gender: Male Note Status: Finalized Procedure: Upper GI endoscopy Indications: Weight loss Providers: Prudencio Garcia Jr, MD Referring MD: Donell Patino MD Requesting Provider: Medicines: Propofol per Anesthesia Complications: No immediate complications. Procedure: Pre-Anesthesia Assessment: - Prior to the procedure, a History and Physical was performed, and patient medications and allergies were reviewed. The patient is competent. The risks and benefits of the procedure and the sedation options and risks were discussed with the patient. All questions were answered and informed consent was obtained. Patient identification and proposed procedure were verified by the physician and the nurse in the pre-procedure area and in the procedure room. Mental Status Examination: alert and oriented. Airway Examination: normal oropharyngeal airway and neck mobility. Respiratory Examination: clear to auscultation. CV Examination: normal. ASA Grade Assessment: II - A patient with mild systemic disease. After reviewing the risks and benefits, the patient was deemed in satisfactory condition to undergo the procedure. The anesthesia plan was to use moderate sedation / analgesia (conscious sedation). Immediately prior to administration of medications, the patient was re-assessed for adequacy to receive sedatives. The heart rate, respiratory rate, oxygen saturations, blood pressure, adequacy of pulmonary ventilation, and response to care were monitored throughout the procedure. The physical status of the patient was re-assessed after the procedure. The Endoscope was introduced through the mouth, and advanced to the second part of duodenum. The upper GI endoscopy was accomplished without difficulty. The patient tolerated the procedure well. Findings: The upper third of the esophagus, middle third of the esophagus, lower third of the esophagus and gastroesophageal junction were normal. The cardia, gastric fundus, gastric body, gastric antrum, prepyloric region of the stomach and pylorus were normal. The duodenal bulb, first portion of the duodenum and second portion of the duodenum were normal. Impression: - Normal upper third of esophagus, middle third of esophagus, lower third of esophagus and gastroesophageal junction. - Normal cardia, gastric fundus, gastric body, antrum, prepyloric region of the stomach and pylorus. - Normal duodenal bulb, first portion of the duodenum and second portion of the duodenum. - No specimens collected. Recommendation: - Discharge patient to home (ambulatory). - Return to my office in 2 weeks. Prudencio Garcia MD Prudencio Garcia Jr, MD 06/28/2020 12:54:07 PM Electronically signed by Prudencio Garcia Jr, MD Number of Addenda: 0 Note Initiated On: 06/28/2020 12:43 PM Estimated Blood Loss: Estimated blood loss: none.
--- NOTE | 2020-06-28 13:05 | ROOR ---
Patient Name: Jonnie Gandhi Procedure Date: 06/28/2020 12:43 PM Date of : 1940 Age: 80 Room: [facility] Gender: Male Note Status: Finalized Procedure: Colonoscopy Indications: Change in bowel habits, Weight loss Providers: Prudencio Garcia Jr, MD Referring MD: Donell Patino MD Requesting Provider: Medicines: Propofol per Anesthesia Complications: No immediate complications. Procedure: Pre-Anesthesia Assessment: - Prior to the procedure, a History and Physical was performed, and patient medications and allergies were reviewed. The patient is competent. The risks and benefits of the procedure and the sedation options and risks were discussed with the patient. All questions were answered and informed consent was obtained. Patient identification and proposed procedure were verified by the physician and the nurse in the pre-procedure area and in the procedure room. Mental Status Examination: alert and oriented. Airway Examination: normal oropharyngeal airway and neck mobility. Respiratory Examination: clear to auscultation. CV Examination: normal. ASA Grade Assessment: II - A patient with mild systemic disease. After reviewing the risks and benefits, the patient was deemed in satisfactory condition to undergo the procedure. The anesthesia plan was to use moderate sedation / analgesia (conscious sedation). Immediately prior to administration of medications, the patient was re-assessed for adequacy to receive sedatives. The heart rate, respiratory rate, oxygen saturations, blood pressure, adequacy of pulmonary ventilation, and response to care were monitored throughout the procedure. The physical status of the patient was re-assessed after the procedure. The Colonoscope was introduced through the anus and advanced to the cecum, identified by appendiceal orifice and ileocecal valve. The colonoscopy was performed without difficulty. The patient tolerated the procedure well. The quality of the bowel preparation was adequate. Findings: The rectum, recto-sigmoid colon, descending colon, transverse colon, cecum, appendiceal orifice and ileocecal valve appeared normal. A few small and large-mouthed diverticula were found in the sigmoid colon and ascending colon. Impression: - The rectum, recto-sigmoid colon, descending colon, transverse colon, cecum, appendiceal orifice and ileocecal valve are normal. - Diverticulosis in the sigmoid colon and in the ascending colon. - No specimens collected. Recommendation: - Discharge patient to home (ambulatory). - Return to my office in 2 weeks. Prudencio Garcia MD Prudencio Garcia Jr, MD 06/28/2020 1:05:09 PM Electronically signed by Prudencio Garcia Jr, MD Number of Addenda: 0 Note Initiated On: 06/28/2020 12:43 PM Estimated Blood Loss: Estimated blood loss: none.
[2020-06-28 13:20] VITALS: BP 180/85
== END | disposition home or self-care (01) ==
LOC: M OPP 11:24
PROVIDERS: ATTEND Surgery
DX: K57.30 Diverticulosis of large intestine without perforation or abscess without bleeding (principal); R63.4 Abnormal weight loss; R19.4 Change in bowel habit; Z79.899 Other long term (current) drug therapy; Z79.82 Long term (current) use of aspirin; Z88.0 Allergy status to penicillin; Z88.2 Allergy status to sulfonamides; Z88.5 Allergy status to narcotic agent
CPT/HCPCS: 43235; 45378; J3010

== ENCOUNTER → 2021-03-16 | Outpatient (CLI) | payer MEDICARE, BC, OTHER ==
[~2021-03-16] MED LIST changes: -LIDOCAINE 2% 100MG/5ML SDV (FOR ANES.) As Ordered ONE; -NS 1,000 ML IV ONE; +OMEP40CA4 PO; -OMEP40CA97 PO; -fentaNYL 100 MCG/2 ML INJECTION (J3010) As Ordered ONE; -propofoL 200 MG/20 ML VIAL As Ordered ONE
== END ==
LOC: M RAD 15:28
PROVIDERS: ATTEND Physician Assistant
DX: M48.061 Spinal stenosis, lumbar region without neurogenic claudication (principal)

== ENCOUNTER → 2021-05-28 | Outpatient (CLI) | payer MEDICARE, BC, OTHER ==
[2021-05-28 15:40] LABS: HEMOGLOBIN 10.5 g/dl (13.5-17.5); MEAN CORPUSCULAR HEMOGLOBIN 32.2 pg (27.0-33.0); MEAN CORPUSCULAR HGB CONC 32.8 g/dl (32.0-36.5); MEAN CORPUSCULAR VOLUME 98.2 fl (80.0-96.0); PLATELET COUNT, AUTOMATED 207 10^3/uL (150-450); RED BLOOD COUNT 3.26 10^6/uL (4.30-6.10); WHITE BLOOD COUNT 5.3 10^3/uL (4.0-10.0)
[2021-05-28 16:31] LABS: HEMOGLOBIN A1c 5.8 %
[2021-05-28 18:23] LABS: ALBUMIN 3.4 GM/DL (3.2-5.2); BILIRUBIN,TOTAL 0.9 MG/DL (0.2-1.0); CALCIUM LEVEL 9.3 MG/DL (8.8-10.2); CHOLESTEROL RISK RATIO 3.022 (<5); CREATININE FOR GFR 1.31 MG/DL (0.70-1.30); FREE T4 0.92 NG/DL (0.76-1.46); GLOMERULAR FILTRATION RATE 55.8 (>35); POTASSIUM SERUM 5.1 MEQ/L (3.5-5.1); THYROID STIMULATING HORMONE 0.564 uIU/ML (0.358-3.740); TOTAL PROTEIN 6.7 GM/DL (6.4-8.2)
== END ==
LOC: M PLALAB 13:35
PROVIDERS: ATTEND Family Medicine
DX: I25.10 Atherosclerotic heart disease of native coronary artery without angina pectoris (principal); D64.9 Anemia, unspecified; I11.0 Hypertensive heart disease with heart failure; E78.2 Mixed hyperlipidemia; F32.9 Major depressive disorder, single episode, unspecified; E74.9 Disorder of carbohydrate metabolism, unspecified; Z79.899 Other long term (current) drug therapy

== ENCOUNTER → 2021-07-23 | Outpatient (CLI) | payer MEDICARE, BC, OTHER ==
[~2021-07-23] MED LIST changes: +D31000TA2 PO; +GNP1000C11 PO; +ISOVUE-370 76% 100ML VIAL As Ordered ONE; +LATA0.0015 OU; +LOSA50TA28 PO; -LOSA50TA88 PO; +OMEP-173 PO; -OMEP-218; -SPIR-10; +SPIR-10 PO
== END ==
LOC: M RAD 13:33
PROVIDERS: ATTEND Internal Medicine Nephrology
DX: R31.9 Hematuria, unspecified (principal); N28.1 Cyst of kidney, acquired
CPT/HCPCS: 74178; Q9967

== ENCOUNTER → 2021-08-20 | Outpatient (CLI) | payer MEDICARE, BC, OTHER ==
[~2021-08-20] MED LIST changes: -ISOVUE-370 76% 100ML VIAL As Ordered ONE; -LOSA50TA28 PO; +LOSA50TA88 PO; -OMEP-173 PO; +OMEP-218 PO
--- NOTE | 2021-08-20 14:47 | REP ---
INDICATION: NEOPLASM OF UNSPECIFIED BEHAVIOR OF BLADDER COMPARISON: 07/29/2016 TECHNIQUE: PA and lateral. FINDINGS: The mediastinum and cardiac silhouette are normal. The lung fuchs are clear and without acute consolidation, effusion, or pneumothorax. The skeletal structures are intact and normal. IMPRESSION: No acute cardiopulmonary process. <Electronically signed by Alex Tello > 08/20/21 [id number]
[2021-08-20 15:30] LABS: HEMATOCRIT 32.9 % (42.0-52.0); MEAN CORPUSCULAR HGB CONC 33.4 g/dl (32.0-36.5); MEAN CORPUSCULAR VOLUME 95.6 fl (80.0-96.0); PLATELET COUNT, AUTOMATED 224 10^3/uL (150-450); RED BLOOD COUNT 3.44 10^6/uL (4.30-6.10); WHITE BLOOD COUNT 5.5 10^3/uL (4.0-10.0)
[2021-08-20 15:41] LABS: INR 1.16; PROTHROMBIN TIME 15.2 SECONDS (12.7-14.5)
[2021-08-20 15:42] LABS: PARTIAL THROMBOPLASTIN TIME 29.1 SECONDS (25.9-37.0)
[2021-08-20 15:58] LABS: CALCIUM LEVEL 9.1 MG/DL (8.8-10.2); CREATININE FOR GFR 1.29 MG/DL (0.70-1.30); GLOMERULAR FILTRATION RATE 56.8 (>35); POTASSIUM SERUM 4.4 MEQ/L (3.5-5.1)
== END ==
LOC: M PLAIMG 13:58
PROVIDERS: ATTEND Urology
DX: Z01.818 Encounter for other preprocedural examination (principal); N39.0 Urinary tract infection, site not specified; D49.4 Neoplasm of unspecified behavior of bladder

== ENCOUNTER → 2021-08-26 | Outpatient (CLI) | payer MEDICARE, BC, OTHER | LOC: M LABSMTC 11:56 | PROVIDERS: ATTEND Anesthesiology | DX: Z01.812 Encounter for preprocedural laboratory examination (principal); Z20.822 Contact with and (suspected) exposure to COVID-19 ==

== ENCOUNTER 2021-08-28 09:34 | Day surgery (SDC) | payer MEDICARE, BC, OTHER ==
[~2021-08-28] VITALS: Ht 177.8 cm; Wt 81.2 kg
[~2021-08-28 09:34] MED LIST changes: +ACETAMINOPHEN 1000MG 100ML IV BTL (OFIRMEV) (J0131 PER 10MG) As Ordered ONE; +KETOROLAC 60MG 2ML VIAL As Ordered ONE; +LIDOCAINE 2% 100MG/5ML SDV (FOR ANES.) As Ordered ONE; +LR 1,000 ML IV ONE; +LevoFLOXacin IV 500 MG in IV 1 EA IV ONE; +MIDAZOLAM INJ 2MG/2ML VIAL (J2250 PER 1MG) As Ordered ONE; +ONDANSETRON 4MG/2ML VIAL As Ordered ONE; +ROCURONIUM BROMIDE 50 MG/5 ML VIAL As Ordered ONE; +SUGAMMADEX SODIUM 500 MG/5 ML VIAL (BRIDION) As Ordered ONE; +dexameTHASONE 4 MG/ML 1ML VIAL (J1100 PER 1MG) As Ordered ONE; +fentaNYL 100 MCG/2 ML INJECTION (J3010) As Ordered ONE; +propofoL 200 MG/20 ML VIAL As Ordered ONE
[2021-08-28] MEDS ORDERED: hydrALAZINE 20MG/ML 1ML VIAL (J0360 PER 20MG) As Ordered ONE (11:46)
[2021-08-28] MEDS ORDERED: fentaNYL 100 MCG/2 ML INJECTION (J3010) IV PRN (12:10)
[2021-08-28] MEDS ORDERED: oxyCODONE 5MG TAB PO PRN (12:10)
[2021-08-28] MEDS ORDERED: LR 1,000 ML IV SCH (12:10)
[2021-08-28] MEDS ORDERED: ONDANSETRON 4MG/2ML VIAL IV PRN (12:10)
[2021-08-28] MEDS ORDERED: ACETAMINOPHEN TAB 650MG DOSE (2X325MG) PO PRN (12:15)
[2021-08-28 14:05] VITALS: BP 152/70
== END 2021-08-28 14:25 | disposition home or self-care (01) ==
LOC: M SDC 09:34
PROVIDERS: ATTEND Urology
DX: C67.4 Malignant neoplasm of posterior wall of bladder (principal); I25.10 Atherosclerotic heart disease of native coronary artery without angina pectoris; I10 Essential (primary) hypertension; E78.5 Hyperlipidemia, unspecified; K21.9 Gastro-esophageal reflux disease without esophagitis; Z79.82 Long term (current) use of aspirin; Z79.899 Other long term (current) drug therapy; F03.90 Unspecified dementia, unspecified severity, without behavioral disturbance, psychotic disturbance, mood disturbance, and anxiety; Z88.0 Allergy status to penicillin; Z88.2 Allergy status to sulfonamides; Z88.5 Allergy status to narcotic agent; Z88.8 Allergy status to other drugs, medicaments and biological substances
CPT/HCPCS: 52235; 87426; 88305; J0131; J0360; J1100; J1885; J1956; J2250; J2405; J3010

== ENCOUNTER → 2021-10-09 | Outpatient (CLI) | payer MEDICARE, BC, OTHER ==
[~2021-10-09] MED LIST changes: -ACETAMINOPHEN 1000MG 100ML IV BTL (OFIRMEV) (J0131 PER 10MG) As Ordered ONE; -KETOROLAC 60MG 2ML VIAL As Ordered ONE; -LIDOCAINE 2% 100MG/5ML SDV (FOR ANES.) As Ordered ONE; +LOSA50TA28 PO; -LOSA50TA88 PO; -LR 1,000 ML IV ONE; -LevoFLOXacin IV 500 MG in IV 1 EA IV ONE; -MIDAZOLAM INJ 2MG/2ML VIAL (J2250 PER 1MG) As Ordered ONE; +OMEP-173 PO; -OMEP-218 PO; -ONDANSETRON 4MG/2ML VIAL As Ordered ONE; -ROCURONIUM BROMIDE 50 MG/5 ML VIAL As Ordered ONE; -SUGAMMADEX SODIUM 500 MG/5 ML VIAL (BRIDION) As Ordered ONE; -dexameTHASONE 4 MG/ML 1ML VIAL (J1100 PER 1MG) As Ordered ONE; -fentaNYL 100 MCG/2 ML INJECTION (J3010) As Ordered ONE; -propofoL 200 MG/20 ML VIAL As Ordered ONE
[2021-10-09 17:18] LABS: HEMATOCRIT 32.4 % (42.0-52.0); HEMOGLOBIN 10.5 g/dl (13.5-17.5); MEAN CORPUSCULAR HEMOGLOBIN 31.5 pg (27.0-33.0); MEAN CORPUSCULAR HGB CONC 32.4 g/dl (32.0-36.5); MEAN CORPUSCULAR VOLUME 97.3 fl (80.0-96.0); PLATELET COUNT, AUTOMATED 218 10^3/uL (150-450); RED BLOOD COUNT 3.33 10^6/uL (4.30-6.10); WHITE BLOOD COUNT 5.8 10^3/uL (4.0-10.0)
[2021-10-09 17:52] LABS: ALBUMIN 3.5 GM/DL (3.2-5.2); BILIRUBIN,TOTAL 0.4 MG/DL (0.2-1.0); CALCIUM LEVEL 9.1 MG/DL (8.8-10.2); CREATININE FOR GFR 1.25 MG/DL (0.70-1.30); GLOMERULAR FILTRATION RATE 58.9 (>35); POTASSIUM SERUM 4.8 MEQ/L (3.5-5.1); TOTAL PROTEIN 6.7 GM/DL (6.4-8.2)
[2021-10-09 17:59] LABS: APPEARANCE, URINE CLEAR (CLEAR); BACTERIA, URINE AUTO NEGATIVE (NEGATIVE); BILIRUBIN, URINE AUTO NEGATIVE (NEGATIVE); BLOOD, URINE BLOOD NEGATIVE (NEGATIVE); COLOR, URINE YELLOW (YELLOW); GLUCOSE, URINE (UA) AUTO NEGATIVE (NEGATIVE); KETONE, URINE AUTO NEGATIVE (NEGATIVE); LEUKOCYTE ESTERASE, URINE AUTO NEGATIVE (NEGATIVE); NITRITE, URINE AUTO NEGATIVE (NEGATIVE); PROTEIN, URINE AUTO NEGATIVE (NEGATIVE); RBC, URINE AUTO 0 /HPF (0-3); SPECIFIC GRAVITY URINE AUTO 1.012 (1.002-1.035); SQUAMOUS EPITHELIAL CELL UR AU 1 /HPF (0-6); UROBILINOGEN, URINE AUTO 0.2 mg/dL (0.0-2.0); WBC, URINE AUTO 3 /HPF (0-3)
== END ==
LOC: M PLALAB 15:00
PROVIDERS: ATTEND Nurse Practitioner Women's Health
DX: C67.9 Malignant neoplasm of bladder, unspecified (principal)

== ENCOUNTER → 2021-10-23 | Outpatient (REF) | payer MEDICARE, OTHER, BC ==
[~2021-10-23] MED LIST changes: -D31000TA2 PO; +VITA100093 PO
[2021-10-23 19:15] LABS: APPEARANCE, URINE CLEAR (CLEAR); BACTERIA, URINE AUTO NEGATIVE (NEGATIVE); BILIRUBIN, URINE AUTO NEGATIVE (NEGATIVE); BLOOD, URINE BLOOD NEGATIVE (NEGATIVE); COLOR, URINE YELLOW (YELLOW); GLUCOSE, URINE (UA) AUTO NEGATIVE (NEGATIVE); KETONE, URINE AUTO NEGATIVE (NEGATIVE); LEUKOCYTE ESTERASE, URINE AUTO NEGATIVE (NEGATIVE); NITRITE, URINE AUTO NEGATIVE (NEGATIVE); PROTEIN, URINE AUTO NEGATIVE (NEGATIVE); RBC, URINE AUTO 0 /HPF (0-3); SQUAMOUS EPITHELIAL CELL UR AU 1 /HPF (0-6); UROBILINOGEN, URINE AUTO 0.2 mg/dL (0.0-2.0); WBC, URINE AUTO 1 /HPF (0-3)
== END ==
LOC: M SMT 14:59
PROVIDERS: ATTEND Nurse Practitioner Women's Health
DX: C67.9 Malignant neoplasm of bladder, unspecified (principal)

== ENCOUNTER → 2021-10-28 | Outpatient (REF) | payer MEDICARE, OTHER, BC ==
[2021-10-28 18:57] LABS: APPEARANCE, URINE CLEAR (CLEAR); BACTERIA, URINE AUTO NEGATIVE (NEGATIVE); BILIRUBIN, URINE AUTO NEGATIVE (NEGATIVE); BLOOD, URINE BLOOD NEGATIVE (NEGATIVE); COLOR, URINE YELLOW (YELLOW); GLUCOSE, URINE (UA) AUTO NEGATIVE (NEGATIVE); KETONE, URINE AUTO NEGATIVE (NEGATIVE); LEUKOCYTE ESTERASE, URINE AUTO NEGATIVE (NEGATIVE); MUCUS, URINE SMALL (NEGATIVE); NITRITE, URINE AUTO NEGATIVE (NEGATIVE); PROTEIN, URINE AUTO NEGATIVE (NEGATIVE); RBC, URINE AUTO 0 /HPF (0-3); SPECIFIC GRAVITY URINE AUTO 1.013 (1.002-1.035); SQUAMOUS EPITHELIAL CELL UR AU 0 /HPF (0-6); UROBILINOGEN, URINE AUTO 0.2 mg/dL (0.0-2.0); WBC, URINE AUTO 3 /HPF (0-3)
== END ==
LOC: M SMT 16:54
PROVIDERS: ATTEND Nurse Practitioner Women's Health
DX: C67.9 Malignant neoplasm of bladder, unspecified (principal)

== ENCOUNTER → 2021-11-04 | Outpatient (REF) | payer MEDICARE, OTHER, BC ==
[2021-11-04 13:27] LABS: APPEARANCE, URINE CLEAR (CLEAR); BACTERIA, URINE AUTO 1+ (NEGATIVE); BILIRUBIN, URINE AUTO NEGATIVE (NEGATIVE); BLOOD, URINE BLOOD NEGATIVE (NEGATIVE); COLOR, URINE YELLOW (YELLOW); GLUCOSE, URINE (UA) AUTO NEGATIVE (NEGATIVE); GRANULAR CAST, URINE AUTO 1 /LPF; KETONE, URINE AUTO NEGATIVE (NEGATIVE); LEUKOCYTE ESTERASE, URINE AUTO TRACE (NEGATIVE); NITRITE, URINE AUTO NEGATIVE (NEGATIVE); PROTEIN, URINE AUTO NEGATIVE (NEGATIVE); RBC, URINE AUTO 1 /HPF (0-3); SPECIFIC GRAVITY URINE AUTO 1.006 (1.002-1.035); SQUAMOUS EPITHELIAL CELL UR AU 0 /HPF (0-6); TRANSITIONAL EPITHELIAL AUTO <1 /HPF; UROBILINOGEN, URINE AUTO 0.2 mg/dL (0.0-2.0); WBC, URINE AUTO 3 /HPF (0-3)
== END ==
LOC: M SMT 12:45
PROVIDERS: ATTEND Nurse Practitioner Women's Health
DX: C67.9 Malignant neoplasm of bladder, unspecified (principal)

== ENCOUNTER → 2021-11-11 | Outpatient (REF) | payer MEDICARE, OTHER, BC ==
[2021-11-11 13:35] LABS: APPEARANCE, URINE CLEAR (CLEAR); BACTERIA, URINE AUTO 1+ (NEGATIVE); BILIRUBIN, URINE AUTO NEGATIVE (NEGATIVE); BLOOD, URINE BLOOD NEGATIVE (NEGATIVE); COLOR, URINE YELLOW (YELLOW); GLUCOSE, URINE (UA) AUTO NEGATIVE (NEGATIVE); KETONE, URINE AUTO NEGATIVE (NEGATIVE); LEUKOCYTE ESTERASE, URINE AUTO NEGATIVE (NEGATIVE); MUCUS, URINE SMALL (NEGATIVE); NITRITE, URINE AUTO NEGATIVE (NEGATIVE); PROTEIN, URINE AUTO NEGATIVE (NEGATIVE); RBC, URINE AUTO 1 /HPF (0-3); SPECIFIC GRAVITY URINE AUTO 1.009 (1.002-1.035); SQUAMOUS EPITHELIAL CELL UR AU 1 /HPF (0-6); TRANSITIONAL EPITHELIAL AUTO <1 /HPF; UROBILINOGEN, URINE AUTO 0.2 mg/dL (0.0-2.0); WBC, URINE AUTO 5 /HPF (0-3)
== END ==
LOC: M SMT 12:48
PROVIDERS: ATTEND Nurse Practitioner Women's Health
DX: C67.9 Malignant neoplasm of bladder, unspecified (principal)

== ENCOUNTER → 2021-11-18 | Outpatient (REF) | payer MEDICARE, BC, OTHER ==
[2021-11-18 13:33] LABS: APPEARANCE, URINE CLEAR (CLEAR); BACTERIA, URINE AUTO NEGATIVE (NEGATIVE); BILIRUBIN, URINE AUTO NEGATIVE (NEGATIVE); BLOOD, URINE BLOOD NEGATIVE (NEGATIVE); COLOR, URINE YELLOW (YELLOW); GLUCOSE, URINE (UA) AUTO NEGATIVE (NEGATIVE); KETONE, URINE AUTO NEGATIVE (NEGATIVE); LEUKOCYTE ESTERASE, URINE AUTO TRACE (NEGATIVE); NITRITE, URINE AUTO NEGATIVE (NEGATIVE); PROTEIN, URINE AUTO NEGATIVE (NEGATIVE); RBC, URINE AUTO 0 /HPF (0-3); SPECIFIC GRAVITY URINE AUTO 1.009 (1.002-1.035); SQUAMOUS EPITHELIAL CELL UR AU 1 /HPF (0-6); UROBILINOGEN, URINE AUTO 0.2 mg/dL (0.0-2.0); WBC, URINE AUTO 6 /HPF (0-3)
== END ==
LOC: M SMT 12:53
PROVIDERS: ATTEND Nurse Practitioner Women's Health
DX: C67.9 Malignant neoplasm of bladder, unspecified (principal)

== ENCOUNTER → 2021-12-20 | Outpatient (REF) | payer MEDICARE, BC, OTHER | LOC: M SMT 17:10 | PROVIDERS: ATTEND Urology | DX: C67.9 Malignant neoplasm of bladder, unspecified (principal) ==

== ENCOUNTER → 2022-01-16 | Outpatient (CLI) | payer MEDICARE, BC, OTHER ==
[2022-01-16 15:46] LABS: HEMATOCRIT 31.3 % (42.0-52.0); HEMOGLOBIN 10.6 g/dl (13.5-17.5); MEAN CORPUSCULAR HEMOGLOBIN 32.7 pg (27.0-33.0); MEAN CORPUSCULAR HGB CONC 33.9 g/dl (32.0-36.5); MEAN CORPUSCULAR VOLUME 96.6 fl (80.0-96.0); PLATELET COUNT, AUTOMATED 234 10^3/uL (150-450); RED BLOOD COUNT 3.24 10^6/uL (4.30-6.10); WHITE BLOOD COUNT 5.2 10^3/uL (4.0-10.0)
[2022-01-16 16:13] LABS: ALBUMIN 3.4 GM/DL (3.2-5.2); ALT/SGPT 14 U/L (12-78); BILIRUBIN,TOTAL 0.6 MG/DL (0.2-1.0); BLOOD UREA NITROGEN 18 MG/DL (7-18); CALCIUM LEVEL 9.4 MG/DL (8.8-10.2); CARBON DIOXIDE LEVEL 27 MEQ/L (21-32); CHLORIDE LEVEL 104 MEQ/L (98-107); CREATININE FOR GFR 1.14 MG/DL (0.70-1.30); GLOMERULAR FILTRATION RATE > 60.0 (>35); GLUCOSE, FASTING 111 MG/DL (70-100); POTASSIUM SERUM 4.6 MEQ/L (3.5-5.1); SODIUM LEVEL 136 MEQ/L (136-145); TOTAL PROTEIN 6.8 GM/DL (6.4-8.2)
== END ==
LOC: M PLALAB 14:25
PROVIDERS: ATTEND Urology
DX: C67.9 Malignant neoplasm of bladder, unspecified (principal)

== ENCOUNTER → 2022-01-21 | Outpatient (REF) | payer MEDICARE, BC, OTHER ==
[2022-01-21 17:34] LABS: APPEARANCE, URINE CLEAR (CLEAR); BACTERIA, URINE AUTO NEGATIVE (NEGATIVE); BILIRUBIN, URINE AUTO NEGATIVE (NEGATIVE); BLOOD, URINE BLOOD NEGATIVE (NEGATIVE); COLOR, URINE YELLOW (YELLOW); GLUCOSE, URINE (UA) AUTO NEGATIVE (NEGATIVE); KETONE, URINE AUTO NEGATIVE (NEGATIVE); LEUKOCYTE ESTERASE, URINE AUTO TRACE (NEGATIVE); MUCUS, URINE SMALL (NEGATIVE); NITRITE, URINE AUTO NEGATIVE (NEGATIVE); PROTEIN, URINE AUTO NEGATIVE (NEGATIVE); RBC, URINE AUTO 1 /HPF (0-3); SPECIFIC GRAVITY URINE AUTO 1.009 (1.002-1.035); SQUAMOUS EPITHELIAL CELL UR AU 1 /HPF (0-6); UROBILINOGEN, URINE AUTO 0.2 mg/dL (0.0-2.0); WBC, URINE AUTO 8 /HPF (0-3)
== END ==
LOC: M SMT 16:53
PROVIDERS: ATTEND Urology
DX: C67.9 Malignant neoplasm of bladder, unspecified (principal)

== ENCOUNTER → 2022-01-28 | Outpatient (REF) | payer MEDICARE, BC, OTHER ==
[2022-01-28 18:21] LABS: APPEARANCE, URINE CLEAR (CLEAR); BACTERIA, URINE AUTO NEGATIVE (NEGATIVE); BILIRUBIN, URINE AUTO NEGATIVE (NEGATIVE); BLOOD, URINE BLOOD NEGATIVE (NEGATIVE); COLOR, URINE STRAW (YELLOW); GLUCOSE, URINE (UA) AUTO NEGATIVE (NEGATIVE); KETONE, URINE AUTO NEGATIVE (NEGATIVE); LEUKOCYTE ESTERASE, URINE AUTO 1+ (NEGATIVE); NITRITE, URINE AUTO NEGATIVE (NEGATIVE); PROTEIN, URINE AUTO NEGATIVE (NEGATIVE); RBC, URINE AUTO 0 /HPF (0-3); SPECIFIC GRAVITY URINE AUTO 1.005 (1.002-1.035); SQUAMOUS EPITHELIAL CELL UR AU 0 /HPF (0-6); UROBILINOGEN, URINE AUTO 0.2 mg/dL (0.0-2.0); WBC, URINE AUTO 3 /HPF (0-3)
== END ==
LOC: M SMT 16:52
PROVIDERS: ATTEND Urology
DX: C67.9 Malignant neoplasm of bladder, unspecified (principal)

== ENCOUNTER → 2022-03-14 | Outpatient (REF) | payer MEDICARE, BC, OTHER ==
[~2022-03-14] MED LIST changes: +INDA1.253 PO; -INDA125TA PO
== END ==
LOC: M SMT 17:11
PROVIDERS: ATTEND Urology
DX: C67.9 Malignant neoplasm of bladder, unspecified (principal)

== ENCOUNTER → 2022-03-25 | Outpatient (CLI) | payer MEDICARE, BC, OTHER ==
[2022-03-25 17:57] LABS: CREATININE FOR GFR 1.27 MG/DL (0.70-1.30); GLOMERULAR FILTRATION RATE 57.8 (>35); POTASSIUM SERUM 4.5 MEQ/L (3.5-5.1)
== END ==
LOC: M PLALAB 14:23
PROVIDERS: ATTEND Urology
DX: C67.9 Malignant neoplasm of bladder, unspecified (principal)

== ENCOUNTER → 2022-03-27 | Outpatient (CLI) | payer MEDICARE, BC, OTHER ==
[~2022-03-27] MED LIST changes: +ISOVUE-370 76% 100ML VIAL As Ordered ONE
== END ==
LOC: M RAD 14:26
PROVIDERS: ATTEND Urology
DX: C67.9 Malignant neoplasm of bladder, unspecified (principal)
CPT/HCPCS: 71260; 74178; Q9967

== ENCOUNTER → 2022-04-10 | Outpatient (REF) | payer MEDICARE, OTHER ==
[~2022-04-10] MED LIST changes: -ISOVUE-370 76% 100ML VIAL As Ordered ONE
[2022-04-11 13:10] LABS: HEMATOCRIT 30.7 % (42.0-52.0); HEMOGLOBIN 10.4 g/dl (13.5-17.5); MEAN CORPUSCULAR HEMOGLOBIN 31.7 pg (27.0-33.0); MEAN CORPUSCULAR HGB CONC 33.9 g/dl (32.0-36.5); MEAN CORPUSCULAR VOLUME 93.6 fl (80.0-96.0); PLATELET COUNT, AUTOMATED 235 10^3/uL (150-450); RED BLOOD COUNT 3.28 10^6/uL (4.30-6.10); WHITE BLOOD COUNT 6.3 10^3/uL (4.0-10.0)
[2022-04-11 13:48] LABS: BILIRUBIN,TOTAL 1.2 MG/DL (0.2-1.0); CALCIUM LEVEL 9.7 MG/DL (8.8-10.2); CREATININE FOR GFR 1.49 MG/DL (0.70-1.30); FREE T4 1.08 NG/DL (0.76-1.46); GLOMERULAR FILTRATION RATE 48.1 (>35); POTASSIUM SERUM 5.2 MEQ/L (3.5-5.1); THYROID STIMULATING HORMONE 0.936 uIU/ML (0.358-3.740)
== END ==
LOC: M SFHCADAM 15:14
PROVIDERS: ATTEND Family Medicine
DX: R41.3 Other amnesia (principal); R44.0 Auditory hallucinations